=== PATIENT | male | born 1970 | race Caucasian/White ===

== ENCOUNTER 2019-05-16 23:41 | Emergency (ER) | payer OTHER ==
--- NOTE | 2019-05-17 00:30 | EDM.PDOC ---
ED HPI GENERAL MEDICAL PROBLEM - General Chief Complaint: Syncope Stated Complaint: [facility] Time Seen by Provider: 05/17/19 00:09 Source of Information: Reports: Patient, Police (2 [facility] deputies) History Limitations: Reports: No Limitations - History of Present Illness INITIAL COMMENTS - FREE TEXT/NARRATIVE: Mr. Lloyd is a pleasant 49-year-old man with a past history significant for bipolar affective disorder that he states he self treats with methamphetamine. He has been in care home for the past 2 weeks for methamphetamine and cocaine possession, although he states that he only uses methamphetamine, and has not used cocaine since he was a teenager. He acknowledges that he uses methamphetamine any way that he can get it - smoking, snorting, or injecting it. He states that his most recent use was about 3 weeks ago. The patient states that he has felt lightheaded when upright on off for about the past year. He has had near-syncopal episodes numerous times over the past couple of weeks while in care home, then states that he had 3 actual syncopal episodes today. He denies any physical injury from his events. The patient states that he has not previously sought medical evaluation for his lightheadedness or syncope. He denies associated chest discomfort, palpations, or dyspnea. He states that he has had chills over the past couple of weeks, but no recent fever, cough, nausea, vomiting, consultation, diarrhea, or urinary symptoms. The patient does not have a PCP. His last general physical exam was around 2008. Lower Back Pain Score (Numeric/FACES): 7 - Related Data Allergies Allergy/AdvReac Type Severity Reaction Status Date / Time No Known Allergies Allergy Verified 05/16/19 23:53 Home Meds: Home Meds QUEtiapine [SEROquel] 150 mg PO BID 05/16/19 [History] traZODone HCl [Trazodone HCl] 100 mg PO BID 05/17/19 [History] Past Medical History Musculoskeletal History: Reports: Back Pain, Chronic (DDD), Fracture (lumbar spine x 2) Psychiatric History: Reports: Bipolar - Infectious Disease History Infectious Disease History: Reports: Chicken Pox, Measles, Mumps - Past Surgical History HEENT Surgical History: Reports: Oral Surgery (wisdom teeth extraction) Neurological Surgical History: Reports: Lumbar Spine (L4-S1 fusion) Social & Family History - Family History Family Medical History: Noncontributory - Tobacco Use Smoking Status *Q: Current Some Day Smoker Years of Tobacco use: 35 Packs/Tins Daily Comment: Down from 1 ppd - Caffeine Use Caffeine Use: Reports: None - Alcohol Use Alcohol Use History: No - Recreational Drug Use Recreational Drug Use: Yes Drug Use in Last 12 Months: Yes Recreational Drug Type: Reports: Cocaine (last snorted at 15 years old), Marijuana/Hashish (last smoked at 15 years old), Methamphetamine (smokes, snorts , injects regularly - last in late Apr 2019) - Living Situation & Occupation Living situation: Reports: , with Significant Other (Fiance) Occupation: Employed (regional flatbed truck driver) ED ROS GENERAL - Review of Systems Review Of Systems: ROS reveals no pertinent complaints other than HPI. - Physical Exam Exam: See Below Exam Limited By: No Limitations General Appearance: Alert, No Apparent Distress, Thin Eye Exam: Bilateral Eye: EOMI, Normal Inspection Ears: Normal External Exam, Hearing Grossly Normal Nose: Normal Inspection Throat/Mouth: Normal Inspection, Normal Lips, Normal Voice, No Airway Compromise Head Exam: Atraumatic, Normocephalic Neck: Normal Inspection, Supple, Non-Tender, Full Range of Motion, Other (No carotid bruits). No: Lymphadenopathy (L), Lymphadenopathy (R) Respiratory/Chest: No Respiratory Distress, Lungs Clear, Normal Breath Sounds, No Accessory Muscle Use. No: Decreased Breath Sounds, Crackles, Rhonchi, Wheezing, Stridor, Prolonged Expiration Cardiovascular: Normal Peripheral Pulses, Regular Rate, Rhythm, No Edema, No Gallop, No JVD, No Murmur (Carefully auscultated both supine and sitting upright ), No Rub GI/Abdominal: Normal Bowel Sounds, Soft, Non-Tender, No Organomegaly, No Distention, No Abnormal Bruit, No Mass (Male) Exam: Deferred Rectal (Males) Exam: Deferred Neuro Exam (Abbreviated): Alert, Oriented, Normal Cognition, No Motor/Sensory Deficits Back Exam: Normal Inspection, Full Range of Motion, NT Extremities: Normal Inspection, Normal Range of Motion, No Pedal Edema, Normal Capillary Refill Psychiatric: Normal Affect Skin Exam: Warm, Dry, Intact, Normal Color, No Rash EKG INTERPRETATION EKG Date: 05/17/19 Time: 00:37 Rhythm: NSR Rate (Beats/Min): 62 [place]: Normal P-Wave: Present (No atrial enlargement or AV block) QRS: Normal (Normal transition) ST-T: Normal (J point elevation in V2V5 and inferior leads, but no T-wave inversions or ischemic changes.) QT: Normal Comparison: NA - No Prior EKG Course - Vital Signs Last Recorded V/S: Last Vital Signs Temp 36.1 C 05/16/19 23:49 Pulse 73 05/16/19 23:49 Resp 19 05/16/19 23:49 BP 115/71 05/16/19 23:49 Pulse Ox 100 05/16/19 23:49 Orthostatic Blood Pressure [ 108/80 Standing] Orthostatic Blood Pressure [ 116/77 Sitting] Orthostatic Blood Pressure [ 111/78 Supine] - Orders/Labs/Meds Orders: Active Orders 24 hr Category Date Time Status EKG Documentation Completion [RC] STAT Care 05/17/19 00:24 Active Orthostatic Vital Signs [RC] STAT Care 05/17/19 00:23 Active Chest 2V [CR] Stat Exams 05/17/19 00:23 Taken Labs: Laboratory Tests 05/17/19 05/17/19 05/17/19 Range/Units 01:00 01:00 01:00 WBC 7.18 (4.23-9.07) K/mm3 RBC 5.24 (4.63-6.08) M/mm3 Hgb 15.4 (13.7-17.5) gm/dl Hct 44.0 (40.1-51.0) % MCV 84.0 (79.0-92.2) fl MCH 29.4 (25.7-32.2) pg MCHC 35.0 (32.2-35.5) g/dl RDW Std Deviation 39.7 (35.1-43.9) fL Plt Count 178 (163-337) K/mm3 MPV 10.2 (9.4-12.3) fl Neut % (Auto) 76.3 H (34.0-67.9) % Lymph % (Auto) 14.8 L (21.8-53.1) % Harris % (Auto) 6.3 (5.3-12.2) % Eos % (Auto) 1.7 (0.8-7.0) Baso % (Auto) 0.6 (0.1-1.2) % Neut # (Auto) 5.49 H (1.78-5.38) K/mm3 Lymph # (Auto) 1.06 L (1.32-3.57) K/mm3 Harris # (Auto) 0.45 (0.30-0.82) K/mm3 Eos # (Auto) 0.12 (0.04-0.54) K/mm3 Baso # (Auto) 0.04 (0.01-0.08) K/mm3 D-Dimer, Quantitative < 0.19 L (0.19-0.50) mg/L Sodium 139 (136-145) mEq/L Potassium 4.0 (3.5-5.1) mEq/L Chloride 101 (98-107) mEq/L Carbon Dioxide 33 H (21-32) mEq/L Anion Gap 9.0 (5-15) BUN 19 H (7-18) mg/dL Creatinine 1.2 (0.7-1.3) mg/dL Est Cr Clr Drug Dosing 74.76 mL/min Estimated GFR (MDRD) > 60 (>60) mL/min BUN/Creatinine Ratio 15.8 (14-18) Glucose 100 (74-106) mg/dL Calcium 8.9 (8.5-10.1) mg/dL Magnesium 1.7 L (1.8-2.4) mg/dl Total Bilirubin 0.2 (0.2-1.0) mg/dL AST 19 (15-37) U/L ALT 36 (16-63) U/L Alkaline Phosphatase 75 (46-116) U/L Troponin I < 0.017 (0.00-0.056) ng/mL Total Protein 7.1 (6.4-8.2) g/dl Albumin 3.9 (3.4-5.0) g/dl Globulin 3.2 gm/dL Albumin/Globulin Ratio 1.2 (1-2) TSH 3rd Generation 2.199 (0.358-3.74) uIU/mL Urine Opiates Screen (DNGTWN=324) Ur Buprenorphine Scrn (CUTOFF=10) Ur Oxycodone Screen (RTY2ZL=009) Urine Methadone Screen (LWP4KD=511) Ur Propoxyphene Screen (VXOCYR=159) Ur Barbiturates Screen (VGZFHR=386) Ur Tricyclics Screen (EQBZDI=321) Ur Phencyclidine Scrn (CUTOFF=25) Ur Amphetamine Screen (PKBHLV=120) U Methamphetamines Scrn (VSXLNP=544) U Benzodiazepines Scrn (JTAPDC=683) U Cocaine Metab Screen (OBKGLL=461) U Marijuana (THC) Screen (CUTOFF=50) 05/17/19 Range/Units 01:35 WBC (4.23-9.07) K/mm3 RBC (4.63-6.08) M/mm3 Hgb (13.7-17.5) gm/dl Hct (40.1-51.0) % MCV (79.0-92.2) fl MCH (25.7-32.2) pg MCHC (32.2-35.5) g/dl RDW Std Deviation (35.1-43.9) fL Plt Count (163-337) K/mm3 MPV (9.4-12.3) fl Neut % (Auto) (34.0-67.9) % Lymph % (Auto) (21.8-53.1) % Harris % (Auto) (5.3-12.2) % Eos % (Auto) (0.8-7.0) Baso % (Auto) (0.1-1.2) % Neut # (Auto) (1.78-5.38) K/mm3 Lymph # (Auto) (1.32-3.57) K/mm3 Harris # (Auto) (0.30-0.82) K/mm3 Eos # (Auto) (0.04-0.54) K/mm3 Baso # (Auto) (0.01-0.08) K/mm3 D-Dimer, Quantitative (0.19-0.50) mg/L Sodium (136-145) mEq/L Potassium (3.5-5.1) mEq/L Chloride (98-107) mEq/L Carbon Dioxide (21-32) mEq/L Anion Gap (5-15) BUN (7-18) mg/dL Creatinine (0.7-1.3) mg/dL Est Cr Clr Drug Dosing mL/min Estimated GFR (MDRD) (>60) mL/min BUN/Creatinine Ratio (14-18) Glucose (74-106) mg/dL Calcium (8.5-10.1) mg/dL Magnesium (1.8-2.4) mg/dl Total Bilirubin (0.2-1.0) mg/dL AST (15-37) U/L ALT (16-63) U/L Alkaline Phosphatase (46-116) U/L Troponin I (0.00-0.056) ng/mL Total Protein (6.4-8.2) g/dl Albumin (3.4-5.0) g/dl Globulin gm/dL Albumin/Globulin Ratio (1-2) TSH 3rd Generation (0.358-3.74) uIU/mL Urine Opiates Screen Negative (IOOZLE=324) Ur Buprenorphine Scrn Negative (CUTOFF=10) Ur Oxycodone Screen Negative (CTL3OR=555) Urine Methadone Screen Negative (IKM4CM=555) Ur Propoxyphene Screen Negative (HDVOVL=163) Ur Barbiturates Screen Negative (OIYJYY=055) Ur Tricyclics Screen Presumptive positive H (ZYEMRB=435) Ur Phencyclidine Scrn Negative (CUTOFF=25) Ur Amphetamine Screen Negative (UGGHGE=687) U Methamphetamines Scrn Negative (ASBDBO=396) U Benzodiazepines Scrn Negative (UXHAEJ=330) U Cocaine Metab Screen Negative (PQHDTT=555) U Marijuana (THC) Screen Negative (CUTOFF=50) - Re-Assessments/Exams Free Text/Narrative Re-Assessment/Exam: 05/17/19 00:25 The etiology of the patient's symptoms is not immediately clear. His physical examination, including his vital signs, at least while supine, are normal. I have ordered orthostatics, an ECG, a chest x-ray, and blood work. Despite being in care home, I think a urine drug screen would be useful, since it possible for inmates to acquire illicit drugs. 05/17/19 00:33 While the patient reported feeling lightheaded when standing, he is not orthostatic. 05/17/19 01:25 2 view chest radiograph appears to be grossly normal. The cardiac silhouette is within normal limits. No pulmonary vascular congestion. No pleural effusions. No focal infiltrate. No pneumothorax. Formal read per the Radiologist pending. 05/17/19 02:26 The patient's CBC is unremarkable. His CMP is remarkable for a bicarbonate elevated at 33, and a BUN slightly elevated at 19, with a normal creatinine. The remainder of his CMP is unremarkable. His magnesium level is slightly low at 1.7. His troponin is undetectably low. His D-dimer is undetectably low. His TSH is within normal limits. His urine drug screen is positive for tricyclic antidepressants, but is otherwise unremarkable. The patient is on quietapine and trazodone; quietapine can cause a false positive tricyclic antidepressant immunoassay drug screen, even at therapeutic doses. The cause of the patient's symptoms is unclear, but no significant abnormalities were found on tonight's workup. I believe the patient may safely be returned to care home. Departure - Departure Time of Disposition: 02:31 Disposition: Home, Self-Care 01 Condition: Good Clinical Impression: Syncope - Discharge Information *PRESCRIPTION DRUG MONITORING PROGRAM REVIEWED*: Not Applicable *COPY OF PRESCRIPTION DRUG MONITORING REPORT IN PATIENT JOSH: Not Applicable Referrals: PCP,None [Primary Care Provider] - Forms: ED Department Discharge Additional Instructions: Mr. Lloyd was evaluated in the emergency room for symptoms of recurrent lightheadedness, and several episodes of passing out. Workup in the ER included blood work, positional blood pressure checks, a urine drug screen, a chest x-ray, and an ECG. His entire workup was unremarkable, and does not explain the cause of his symptoms. He is not dehydrated. He is not anemic. He has not suffered a heart attack. He does not have a blood clot in his lungs. No abnormalities were found on his ECG. If his symptoms persist, he should follow-up with an [facility]. If any other problems, please do not hesitate to return Mr. Lloyd to the ER. - My Orders Last 24 Hours: My Active Orders 05/17/19 00:23 Orthostatic Vital Signs [RC] STAT Chest 2V [CR] Stat 05/17/19 00:24 EKG Documentation Completion [RC] STAT - Assessment/Plan Last 24 Hours: My Active Orders 05/17/19 00:23 Orthostatic Vital Signs [RC] STAT Chest 2V [CR] Stat 05/17/19 00:24 EKG Documentation Completion [RC] STAT
--- NOTE | 2019-05-17 06:43 | CR ---
Chest: Two views of the chest are obtained. Comparison: No prior chest x-ray. Heart size and mediastinum are normal. Lungs are clear. Diaphragms are slightly flattened on the lateral view suggesting emphysematous change. Minimal disc space narrowing is noted within the spine with minimal endplate osteophytes and slight scoliosis. Impression: 1. Probable emphysematous change. 2. Other findings which are believed to be incidental. Nothing acute is appreciated. Diagnostic code #2
== END 2019-05-17 02:42 | disposition home or self-care (01) ==
LOC: JD.ED 23:41
DX: R55 Syncope and collapse (principal); F31.9 Bipolar disorder, unspecified; F17.210 Nicotine dependence, cigarettes, uncomplicated; Z79.899 Other long term (current) drug therapy
CPT/HCPCS: 36415; 71046; 71046-26; 80053; 80306; 83735; 84443; 84484; 85025; 85379; 93005; 93010; 99283; 99285-25